=== PATIENT | female | born 1980 | race American Indian/Alaskan Native ===

== ENCOUNTER 2020-09-13 03:58 | Emergency (ER) | payer OTHER, MEDICAID ==
[~2020-09-13] VITALS: Ht 160 cm; Wt 115.0 kg
--- NOTE | 2020-09-13 04:35 | NUR ---
emiliano of [facility] notified and will call if he gets hold of educational programming director advocate.
--- NOTE | 2020-09-13 05:41 | NUR ---
emmanuel ramsay of [facility] called back to let us know that she is still trying to get hold of patient advocate.
--- NOTE | 2020-09-13 06:21 | NUR ---
I called and spoke to [employer] regarding this patient. I asked if they were going to come talk to the patient and interview her. The dispatcher stated the officer waited here for over an hour to speak to the patient and that they did not wait to speak to her. They are sendign an officer to come and interview her.
--- NOTE | 2020-09-13 07:38 | NUR ---
Aida from [facility] called and said she was returning the call from this morning. I went in and asked the patient if she wanted to have an advocate present and the patient stated she declined to have an advocate present.
--- NOTE | 2020-09-13 07:44 | NUR ---
I called back to [facility] spoke to Shana in dispatch. I asked for clarification on a eta for an officer to respond, there is not an eta on the officer arrival.
--- NOTE | 2020-09-13 08:13 | NUR ---
[facility]
[2020-09-13 10:21] LABS: CLARITY,URINE CLOUDY (Clear); COLOR,URINE YELLOW (Yellow); GLUCOSE, URINE NEGATIVE (Neg); KETONES,URINE NEGATIVE (Neg); LEUKOCYTE ESTERASE ,URINE NEGATIVE (Neg); NITRITES, URINE POSITIVE (Neg); OCCULT BLOOD,URINE NEGATIVE (Neg); PH,URINE 5.5 (4.8-8.0); PROTEIN,URINE NEGATIVE (Neg); UROBILINOGEN,URINE 0.2 E.U/dL (0.2-1.0)
[2020-09-13 10:22] LABS: URINE HCG NEGATIVE (NEG)
[2020-09-13 10:32] LABS: UA COLLECTION TYPE NON-SPECIFIED
[2020-09-13 10:33] LABS: MUCUS STRANDS MANY /LPF (Neg); SQUAMOUS EPITHELIAL CELL,UR MANY /LPF (FEW)
[2020-09-13 10:34] LABS: BACTERIA,URINE 4+ /HPF (Neg); RBC,URINE 0-2 /HPF (0-2); WBC,URINE 0-4 /HPF (0-4)
[2020-09-13 10:37] LABS: URINE AMPHETAMINE SCREEN POSITIVE (Neg); URINE BARBITUATE SCREEN NEGATIVE (Neg); URINE BENZODIAZEPINES SCREEN NEGATIVE (Neg); URINE CANNABINOID SCREEN NEGATIVE (Neg); URINE COCAINE SCREEN NEGATIVE (Neg); URINE METHADONE SCREEN NEGATIVE (Neg); URINE OPIATE SCREEN NEGATIVE (Neg); URINE PHENCYCLIDINE SCREEN NEGATIVE (Neg)
[2020-09-13] MEDS ORDERED: CEPH-585 PO (12:37)
[2020-09-13] MEDS ORDERED: CefTRIAXone 250MG IM Kit w/LIDOcaine IM ONE (12:55)
[2020-09-13] MEDS ORDERED: metroNIDAZOLE 500mg tablet PO ONE (12:55)
[2020-09-13] MEDS ORDERED: azithromycin 250mg tablet PO ONE (12:55)
[2020-09-13 13:57] VITALS: BP 138/80
== END 2020-09-13 13:25 | disposition home or self-care (01) ==
LOC: ER 03:59 → EEVIPCON 03:59 → ER 13:25
DX: T76.21XA Adult sexual abuse, suspected, initial encounter (principal); N39.0 Urinary tract infection, site not specified; Z88.5 Allergy status to narcotic agent; Z79.899 Other long term (current) drug therapy; Y92.89 Other specified places as the place of occurrence of the external cause
CPT/HCPCS: 80305; 81001; 81025; 96372; 99284; J0696; 99283; J3490